=== PATIENT | female | born 1995 | race Caucasian/White ===

== ENCOUNTER → 2024-12-22 | Outpatient (CLI) | payer BC, SELFPAY ==
--- NOTE | 2024-12-22 15:24 | XR_ITS ---
Examination: Knee, right , 3 views Technique: Knee AP, lateral, oblique 3 views Date and time of exam: December 22, 2024 1601 hrs. Right knee pain one year. Findings: No fracture or dislocation. Minimal knee tricompartment osteoarthritis Impression: Minimal tricompartment osteoarthritis
== END | disposition home or self-care (01) ==
LOC: CDIM 14:58
PROVIDERS: PCP Family Medicine; Referring Provider Family Medicine; Visit Provider Family Medicine
DX: M17.11 Unilateral primary osteoarthritis, right knee (principal)
CPT/HCPCS: 73562